=== PATIENT | male | born 1955 | race Caucasian/White ===

== ENCOUNTER 2021-02-01 20:17 | Emergency (ER) | payer MEDICARE, OTHER ==
[2021-02-01 21:01] VITALS: RESP 18
[2021-02-01] MEDS ORDERED: KETOROLAC 15 MG/ML 1 ML VIAL IM STA (22:07)
[2021-02-01] MEDS ORDERED: MORPHINE SULFATE 4 MG/ML SYRINGE IM STA (22:07)
--- NOTE | 2021-02-01 22:12 | ED ---
General Adult HPI - General Chief complaint: Neck Pain/Injury Stated complaint: Neck Pain Time Seen by Provider: 02/01/21 21:58 Source: EMS, RN notes reviewed Mode of arrival: EMS Limitations: no limitations - History of Present Illness Initial comments: This is a well-appearing alert and oriented 65-year-old male presents to the emergency room via EMS from [place]. Patient states that he was seen at [facility] emergency room 10 days ago after he fell down 4 steps after drinking. Patient states that he was told he has a broken neck. He was told to follow up with neurology which he has not been able to obtain an appointment. He states that he has gone to physical therapy and has not helped. They did prescribe him Cosby which has not been helping him either. He denies any other injuries. He is able ambulate with a steady gait. He has no complaints of numbness or tingling. -: days(s) (10) Location: neck Radiation: non-radiation Severity scale (1-10): 8 Quality: sharp Consistency: constant Improves with: none Worsens with: movement Associated Symptoms: denies other symptoms Treatments Prior to Arrival: none - Related Data Allergies Allergy/AdvReac Type Severity Reaction Status Date / Time No Known Allergies Allergy Verified 02/01/21 21:01 Review of Systems ROS Statement: Those systems with pertinent positive or pertinent negative responses have been documented in the HPI. ROS Other: All systems not noted in ROS Statement are negative. Past Medical History Past Medical History: COPD, Hypertension Additional Past Medical History / Comment(s): broken neck in 1976. History of Any Multi-Drug Resistant Organisms: None Reported Past Surgical History: Orthopedic Surgery Additional Past Surgical History / Comment(s): neck sugery, left shoulder Past Psychological History: No Psychological Hx Reported Smoking Status: Current every day smoker Past Alcohol Use History: Occasional Past Drug Use History: None Reported General Exam Limitations: no limitations General appearance: alert, in no apparent distress Head exam: Present: atraumatic, normocephalic, normal inspection Eye exam: Present: normal appearance, EOMI ENT exam: Present: normal exam, normal oropharynx, mucous membranes moist Neck exam: Present: normal inspection, tenderness (Right trapezius; no C-spine vertebral tenderness noted), full ROM. Absent: meningismus, lymphadenopathy, thyromegaly Respiratory exam: Present: wheezes (inspiratory and expiratory) Cardiovascular Exam: Present: regular rate, normal rhythm, normal heart sounds. Absent: systolic murmur, diastolic murmur, rubs, gallop, clicks GI/Abdominal exam: Present: soft Extremities exam: Present: full ROM, normal capillary refill. Absent: tenderness, pedal edema Back exam: Absent: tenderness, CVA tenderness (R), CVA tenderness (L) Neurological exam: Present: alert, oriented X3, CN II-XII intact, normal gait Psychiatric exam: Present: normal affect, normal mood Skin exam: Present: warm, dry, intact, normal color. Absent: rash, cyanosis, diaphoretic Course Vital Signs 02/01/21 20:57 Temperature 98.9 F Pulse Rate 67 Respiratory 18 Rate Blood Pressure 120/82 O2 Sat by Pulse 94 L Oximetry Medical Decision Making - Medical Decision Making Attempted to get [facility] emergency room records on patient's last visit and unable. X-ray of cervical spine shows normal alignment with degenerative disc space narrowing to the mid and lower cervical spine with spur formation. There is no compression fractures. There is some left-sided neural foraminal impingement at C4 C5. Patient is ambulatory in the foreman with a steady gait. He has no focal neurological deficits. He states that he did get pain relief with the morphine. States he does have Flexeril and Cosby that was previously prescribed. Case discussed Dr Thurman Disposition Clinical Impression: Neck pain Disposition: HOME SELF-CARE Condition: Good Instructions (If sedation given, give patient instructions): Neck Pain (ED) Additional Instructions: Follow-up with the primary care doctor in 1 week. Return to the emergency room with any new or worsening symptoms including weakness, numbness or tingling to one side of your body. Take medications as previously prescribed. Continue use [id number] Biofreeze or [place] balm in addition to Motrin to help with pain. Is patient prescribed a controlled substance at d/c from ED?: No Referrals: Luis Eduardo Graham DO [Primary Care Provider] - 1-2 days Time of Disposition: 00:02
--- NOTE | 2021-02-01 23:46 | XR ---
EXAMINATION TYPE: XR cervical spine comp DATE OF EXAM: 02/01/2021 COMPARISON: NONE HISTORY: Neck pain TECHNIQUE: 5 views FINDINGS: The cervical vertebra have normal alignment. There is degenerative disc space narrowing in the mid and lower cervical spine with spur formation. Posterior elements are intact. There is no comp ression fracture. There is uncovertebral spurring and some left side neural foraminal impingement at C4-5. Atlantoaxial facet joint is normal. There are no cervical ribs. IMPRESSION: Spondylotic changes. No fracture.
[2021-02-02] MEDS ORDERED: HYDROcodone/APAP 5-325MG 1 EACH TAB PO STA (00:05)
[2021-02-02 01:16] VITALS: BP 102/76; PULSE 86; TEMP 98.6
== END 2021-02-02 01:25 | disposition home or self-care (01) ==
LOC: EDBD → EC 20:17
DX: M54.2 Cervicalgia (principal); I10 Essential (primary) hypertension; J44.9 Chronic obstructive pulmonary disease, unspecified; F17.200 Nicotine dependence, unspecified, uncomplicated; W10.9XXA Fall (on) (from) unspecified stairs and steps, initial encounter
CPT/HCPCS: 72050; 99283; 96372 ×2; J2270; J1885